=== PATIENT | male | born 1985 | race Caucasian/White ===

== ENCOUNTER 2022-03-03 13:10 | Emergency (ER) | payer OTHER, SELFPAY ==
[2022-03-03 13:22] VITALS: BP 137/76; PULSE 84; RESP 18; TEMP 37.2; O2SAT 96; BMI 23.7
--- NOTE | 2022-03-03 13:41 | CRLHL7_ITS ---
For Patients: As a result of the Century Cures Act, medical imaging exams and procedure reports are released immediately into your electronic medical record. You may view this report before your referring provider. If you have questions, please contact your health care provider. INDICATION: Right lower neck pain with swallowing TECHNIQUE: CT soft tissue of the neck was acquired with 84 cc Isovue 370 intravenous contrast. COMPARISON: None FINDINGS: Intracranial contents are unremarkable. Included portions of the orbits are unremarkable. Paranasal sinuses are clear. Parotid and submandibular glands are unremarkable. Borderline diameter lymph nodes along the jugular chain measuring up to 10 millimeters. Nasopharynx is patent. No peritonsillar enlargement. Normal epiglottis. Thyroid gland unremarkable. Vocal cords are unremarkable. Carotid space unremarkable. Lung apices unremarkable. Mild degenerative disc disease C6-7. IMPRESSION: 1. Borderline diameter jugular lymph nodes, possibly reactive infectious/inflammatory lymph nodes. 2. Otherwise unremarkable soft tissue neck CT. Please note that all CT scans at this facility use dose modulation, iterative reconstruction, and/or weight-based dosing when appropriate to reduce radiation dose to as low as reasonably achievable. Dictated by Jovan Bledsoe MD @ 03/03/2022 2:53:22 PM (Electronically Signed)
[2022-03-03 14:26] LABS: Basophils Absolute Auto 0.04 K/uL (0.00-0.30); Basophils Percent Auto 0.5 % (0.0-3.0); Eosinophils Absolute Auto 0.19 K/uL (0.00-0.50); Eosinophils Percent Auto 2.2 % (0.0-7.0); Hematocrit 48.6 % (37.0-53.0); Hemoglobin* 16.3 gm/dL (13.5-17.5); Immature Granulocytes Abs Auto 0.07 K/uL (0.00-0.30); Immature Granulocytes Pct Auto 0.8 %; Lymphocytes Absolute Auto 1.78 K/uL (0.90-2.90); Lymphocytes Percent Auto 20.4 % (20-44); Mean Corpuscular HGB Conc 34 gm/dL (32-36); Mean Corpuscular Hemoglobin 29 pg (26-34); Mean Corpuscular Volume 86 fL (80-100); Monocytes Percent Auto 7.3 % (0.0-11.0); Neutrophils Absolute Auto 6.02 K/uL (1.7-7.0); Neutrophils Percent Auto 68.8 % (42.0-72.0); Platelet Count* 263 K/uL (140-440); RDW Coefficient of Variation % 12.6 % (11.5-15.5); Red Blood Count 5.64 m/uL (4.30-5.90); White Blood Count* 8.74 K/uL (4.50-11.00)
[2022-03-03 14:27] LABS: Chloride* 105 mmol/L (96-114); Sodium* 142 mmol/L (135-149)
[2022-03-03] MEDS: 0.9 % SODIUM CHLORIDE 1000 ml 1,000 ML IV (14:28)
[2022-03-03 14:30] LABS: Blood Urea Nitrogen* 20 mg/dL (5-24); Carbon Dioxide* 25 mmol/L (20-32); Creatinine* 0.8 mg/dL (0.5-1.5); Est. Creatinine Clearance* 138.57; Estimated Glomerular Filt Rate 119 ml/min
[2022-03-03 14:31] LABS: Glucose* 86 mg/dL (60-115)
[2022-03-03 14:37] LABS: Strep A DNA Probe* NOT DETECTED (Not Detectd)
[2022-03-03] MEDS: KETOROLAC 30 MG/ML inj IVP (14:39)
[2022-03-03 14:43] LABS: Potassium* 4.2 mmol/L (3.6-5.1)
[2022-03-03 14:46] LABS: Slide Review Reflex No
[2022-03-03 14:51] LABS: PCR FLU A Negative PCR FLU A (Negative); PCR FLU B Negative PCR FLU B (Negative)
[2022-03-03 14:54] LABS: C Reactive Protein* < 0.5 mg/dL (0.5-1.0)
[2022-03-03 15:01] LABS: SARS PCR* Negative SARS-CoV-2 (Negative)
[2022-03-03 15:48] LABS: Erythrocyte SedimentationRate* <7 mm/hr (2-15)
--- NOTE | 2022-03-03 17:14 | ED.GENADULT ---
HPI - General Adult General Chief complaint: Sore Throat Stated complaint: Painful Lump in Throat Time Seen by Provider: 03/03/22 13:26 History of Present Illness HPI narrative: 36-year-old man presenting to the emergency department complaint of right low throat pain. Hurts mostly when swallowing. Feels like he has even hard time swallowing water. He is maintaining his secretions. Been no fever. This pain has been increasing over the last 2 weeks. At rest he does not have much of a sore throat. Demonstrates to an area right of the thyroid it looks like and deep in the neck inferior to the larynx. He has not had any difficulty breathing. No rashes. No particular exposures noted. He has not tried anything for treatment. Duration of symptoms again about 2 weeks though seemed to get better about 4 days ago and now has come back again. Says he has never had strep before. Does smoke now ?down to half a pack a day? Related Data Home Medications Medication Instructions Recorded Confirmed No Known Home Medications 03/03/22 03/03/22 Allergies Allergy/AdvReac Type Severity Reaction Status Date / Time No Known Drug Allergies Allergy Verified 03/03/22 14:21 Review of Systems Status of ROS: Reports: 6 or more systems reviewed and unremarkable except as noted in History and below [facility] Social History Smoking Status: Current every day smoker How often do you have a drink containing alcohol: never AUDIT-C Alcohol total score: 0 Non-prescribed substance use: marijuana (any form) Exam Narrative: Exam Narrative: Pleasant. NAD. Slim. Continues to worry the right cervical neck area. Breathing easily. No stridor. Cranial nerves 2-12 look to be intact. Neck is supple without palpable lymphadenopathy. No thyromegaly. Area of discomfort appears to be possibly the lateral edge of the thyroid but deep to that in the lymph chain I think. Not really exacerbated with neck movement and not clearly reproducible to palpation of the musculature. Lungs are clear. Heart with a regular rate and rhythm. No murmur rub or gallop identified. Oropharynx is hyperemic consistent with smoking. No lesions identified. There is prominent tonsillar pit on the right side but without any exudate or concretions. No glandular swelling of head and neck appreciated. No lesions on the skin. Extremities are well perfused. Const: Vital Signs, click to edit/add: Vital Signs - 24 hr 03/03/22 13:22 Temperature 99.0 F Pulse Rate [Right Pulse Oximeter] 84 Respiratory Rate 18 Blood Pressure [Ri ght Upper Arm] 137/76 Pulse Oximetry 96 Oxygen Delivery Me thod Room Air Documenting provider has reviewed patient's vital signs: yes Course Vital Signs Vital signs: Initial Vital Signs Temperature 99.0 F 03/03/22 13:22 Temperature Source Temporal Artery Scan 03/03/22 13:22 Pulse Rate 84 03/03/22 13:22 Respiratory Rate 18 03/03/22 13:22 Blood Pressure 137/76 03/03/22 13:22 Blood Pressure Mean 96 03/03/22 13:22 Blood Pressure Position Sitting 03/03/22 13:22 Pulse Oximetry 96 03/03/22 13:22 Oxygen Delivery Method 03/03/22 13:22 Vital Signs Temperature 99.0 F 03/03/22 13:22 Pulse Rate 84 03/03/22 13:22 Respiratory Rate 18 03/03/22 13:22 Blood Pressure 137/76 03/03/22 13:22 Pulse Oximetry 96 03/03/22 13:22 Oxygen Delivery Method 03/03/22 13:22 Temperature 99.0 F 03/03/22 13:22 Pulse Rate 84 03/03/22 13:22 Respiratory Rate 18 03/03/22 13:22 Blood Pressure 137/76 03/03/22 13:22 Pulse Oximetry 96 03/03/22 13:22 Oxygen Delivery Method 03/03/22 13:22 Medical Decision Making MDM Narrative Medical decision making narrative: After exam and then imaging was having some more discomfort. Was ordered for ketorolac. Was also given a L of normal saline due to IV contrasted imaging. As there is nothing clearly present on physical exam we did proceed with imaging. Does not appear to be an abscess situation. Concerning history given being a smoker. I did consult prior to imaging with ENT on-call. Question of direct visualization. This would be possible urgently and so will proceed with further imaging. Soft tissue CT neck with IV contrast reviewed by me-I can appreciate some a prominent lymph nodes. I do not appreciate inflammatory changes. Radiology over-read of imaging-- IMPRESSION: 1. Borderline diameter jugular lymph nodes, possibly reactive infectious/inflammatory lymph nodes. 2. Otherwise unremarkable soft tissue neck CT. Unclear etiology to these lymph nodes. Labs otherwise unremarkable with normal white count and distribution. TSH was normal. Triple screen negative. CRP is normal. Strep normal. I would follow up for persistent symptoms though. Does not appear to have any pulmonary issue; no chronic cough. Encouraged smoking cessation. Lab Data Labs: Lab Results 03/03/22 03/03/22 03/03/22 Range/Units 13:41 13:55 13:55 WBC 8.74 (4.50-11.00) K/uL RBC 5.64 (4.30-5.90) m/uL Hgb 16.3 (13.5-17.5) gm/dL Hct 48.6 (37.0-53.0) % MCV 86 (80-100) fL MCH 29 (26-34) pg MCHC 34 (32-36) gm/dL RDW Coeff of Dominguez 12.6 (11.5-15.5) % Plt Count 263 (140-440) K/uL Neut % (Auto) 68.8 (42.0-72.0) % Lymph % (Auto) 20.4 (20-44) % [place] % (Auto) 7.3 (0.0-11.0) % Eos % (Auto) 2.2 (0.0-7.0) % Baso % (Auto) 0.5 (0.0-3.0) % Neut # (Auto) 6.02 (1.7-7.0) K/uL Lymph # (Auto) 1.78 (0.90-2.90) K/uL [place] # (Auto) 0.60 (0.00-0.90) K/UL Eos # (Auto) 0.19 (0.00-0.50) K/uL Baso # (Auto) 0.04 (0.00-0.30) K/uL ESR <7 L (2-15) mm/hr Sodium (135-149) mmol/L Potassium (3.6-5.1) mmol/L Chloride (96-114) mmol/L Carbon Dioxide (20-32) mmol/L BUN (5-24) mg/dL Creatinine (0.5-1.5) mg/dL Estimated Creat Clear Estimated GFR ml/min Glucose (60-115) mg/dL Calcium (8.4-10.6) mg/dL C-Reactive Protein (0.5-1.0) mg/dL TSH 1.010 (0.270-4.20) uIU/mL SARS-CoV-2 (PCR) (Negative) Influenza Type A (PCR) (Negative) Influenza Type B (PCR) (Negative) Group A Strep DNA (Not Detectd) 03/03/22 03/03/22 03/03/22 Range/Units 13:55 13:55 13:55 WBC (4.50-11.00) K/uL RBC (4.30-5.90) m/uL Hgb (13.5-17.5) gm/dL Hct (37.0-53.0) % MCV (80-100) fL MCH (26-34) pg MCHC (32-36) gm/dL RDW Coeff of Dominguez (11.5-15.5) % Plt Count (140-440) K/uL Neut % (Auto) (42.0-72.0) % Lymph % (Auto) (20-44) % [place] % (Auto) (0.0-11.0) % Eos % (Auto) (0.0-7.0) % Baso % (Auto) (0.0-3.0) % Neut # (Auto) (1.7-7.0) K/uL Lymph # (Auto) (0.90-2.90) K/uL [place] # (Auto) (0.00-0.90) K/UL Eos # (Auto) (0.00-0.50) K/uL Baso # (Auto) (0.00-0.30) K/uL ESR (2-15) mm/hr Sodium 142 (135-149) mmol/L Potassium 4.2 (3.6-5.1) mmol/L Chloride 105 (96-114) mmol/L Carbon Dioxide 25 (20-32) mmol/L BUN 20 (5-24) mg/dL Creatinine 0.8 (0.5-1.5) mg/dL Estimated Creat Clear 138.57 Estimated GFR 119 ml/min Glucose 86 (60-115) mg/dL Calcium 10.0 (8.4-10.6) mg/dL C-Reactive Protein < 0.5 L (0.5-1.0) mg/dL TSH (0.270-4.20) uIU/mL SARS-CoV-2 (PCR) Negative SARS-CoV-2 (Negative) Influenza Type A (PCR) Negative PCR FLU A (Negative) Influenza Type B (PCR) Negative PCR FLU B (Negative) Group A Strep DNA NOT DETECTED (Not Detectd) Discharge Plan Discharge Clinical Impression: Lymphadenopathy, Neck pain, Nicotine dependence Patient Disposition: Home, Self-Care Condition: Stable Additional Instructions: Stay hydrated. Can take up to 800 mg of ibuprofen or up to 1000 mg of acetaminophen per dose. As alternative to the ibuprofen, could take up to 500 mg naproxen 2 times daily. Return for notable swelling, uncontrolled pain, any indication of difficulty breathing. I would also follow up with your doctor or ENT physician if this is still present in 10-14 days. Do what you can to can quit smoking. Find somebody to quit with. See QuitPlan handout as well. Prescriptions: No Action No Known Home Medications Follow Up/Referrals: Provider,Not a Local [Primary Care Provider] - Stand Alone Forms: [employer] Info Instructions
== END 2022-03-03 15:57 | disposition home or self-care (01) ==
PROVIDERS: Emergency Provider Family Medicine
DX: R59.1 Generalized enlarged lymph nodes (principal); M54.2 Cervicalgia; F17.200 Nicotine dependence, unspecified, uncomplicated
CPT/HCPCS: 36415; 70491; 80048; 84443; 85025; 85651; 86140; 87631; 87651; 96374; 99284; J1885; J7030; Q9967

== ENCOUNTER 2023-01-04 15:46 | Outpatient (CLI) | payer OTHER, SELFPAY ==
--- NOTE | 2023-01-04 16:00 | CRLHL7_ITS ---
For Patients: As a result of the Century Cures Act, medical imaging exams and procedure reports are released immediately into your electronic medical record. You may view this report before your referring provider. If you have questions, please contact your health care provider. Indication: Other specified disorders of male genitalia. Technique: Ultrasound of the scrotum and contents. Sonographic wong-scale images were obtained with spectral and color Doppler waveform and spectral waveform analysis of the testicles. Comparison: None. Findings: Bother testicles are normal in size and echotexture. No masses. No suspicious calcifications. Arterial and venous color Doppler blood flow and spectral waveforms are present in both testicles. Epididymis: Unremarkable bilaterally. Normal blood flow. Other: No significant hydrocele. Left-sided varicocele present. Scrotal wall is normal. Impression: Left-sided varicocele. Otherwise unremarkable exam. No sign of torsion or inflammation. Dictated by Bharat Miranda MD @ 01/06/2023 10:35:40 AM (Electronically Signed)
== END 2023-01-04 15:47 | disposition home or self-care (01) ==
PROVIDERS: PCP Physician Assistant Medical; Visit Provider Surgery
DX: N50.89 Other specified disorders of the male genital organs (principal); I86.1 Scrotal varices
CPT/HCPCS: 76870; 93976